=== PATIENT | female | born 1985 | race Caucasian/White ===

== ENCOUNTER 2018-04-24 08:59 | Emergency (ER) | payer MEDICAID ==
[~2018-04-24] VITALS: Ht 160 cm; Wt 126.4 kg
[~2018-04-24 08:59] MED LIST: AMIT75TA2 PO; BACL20TA PO; BUPR100T16 PO; CARB-101 PO; CLIN300C85 PO; COMIN IH; DULO20CA50 PO; LEVA15HF4 IH; LYR25C PO; MUPI15CR TP; OMEP-50 PO
--- NOTE | 2018-04-24 09:36 | NUR ---
PT IS 33 YO FEMALE C/O SOB "I THINK I HAVE PNEUMONIA", PT WAS SEEN AT [facility] THE BEGINNING OF THE MONTH FOR SAME PROBLEM GIVEN ANTIBIOTICS AND STEROIDS, FINISHED MEDS APPROX 2 WEEKS AGO AND WAS COMPLIANT WITH TAKING PRESCRIBED, PT IS TALKING FULL SENTENCES, NO RESP DISTRESS, BUT SAYS SHE GET SOB JUST WALKING ACROSS THE TRAIL[place] SHE [place]ES [place].
[2018-04-24] MEDS ORDERED: ipratropium/albuterol 3ml nebule NEB ONE (10:00)
[2018-04-24 10:05] LABS: BASOPHILS % (AUTO) 0.4 % (0-1); EOSINOPHILS # (AUTO) 0.1 X10'3 (0-0.9); EOSINOPHILS % (AUTO) 1.9 % (0-6); HEMATOCRIT 33.8 % (35.0-45.0); HEMOGLOBIN 10.4 g/dl (12.0-16.0); LYMPHOCYTES # (AUTO) 2.7 X10'3 (1.1-4.8); MEAN CORPUSCULAR HEMOGLOBIN 22.8 PG (27.0-31.0); MEAN CORPUSCULAR HGB CONC 30.9 % (33.0-36.5); MEAN CORPUSCULAR VOLUME 73.8 FL (78-98); MEAN PLATELET VOLUME 7.9 FL (7.4-10.4); MONOCYTES # (AUTO) 0.6 X10'3 (0-0.9); MONOCYTES % (AUTO) 7.7 % (2-12); NEUTROPHILS # (AUTO) 4.2 X10'3 (1.8-7.7); PLATELET COUNT 330 X10'3 (140-440); RED BLOOD COUNT 4.58 X10'6 (4.20-5.60); WHITE BLOOD COUNT 7.6 X10'3 (4.5-11.0)
[2018-04-24] MEDS ORDERED: fluconazole 150mg tablet PO ONE (10:15)
[2018-04-24 10:18] LABS: PARTIAL THROMBOPLASTIN TIME 26 SECONDS (22-32); PROTHROMBIN TIME 9.7 SECONDS (9.0-12.0)
--- NOTE | 2018-04-24 10:25 | NUR ---
PT AMB WITH STEADY GAIT TO RESTROOM, C/O INCREASED SOB WITH AMBULATION, SPEAKING 5-6 WORD SENTENCES, 98% ON ROOM AIR AFTER ACTIVITIY
[2018-04-24 10:29] LABS: ALANINE AMINOTRANSFERASE 23 U/L (12-78); ALBUMIN 3.5 G/DL (3.4-5.0); ALBUMIN/GLOBULIN RATIO 0.9 (1.1-1.5); ALKALINE PHOSPHATASE 63 IU/L (46-116); ANION GAP 8 (8-16); ASPARTATE AMINO TRANSFERASE 13 U/L (10-37); BILIRUBIN,TOTAL 0.2 MG/DL (0.1-1.0); BLOOD UREA NITROGEN 13 MG/DL (7-18); BUN/CREATININE RATIO 13.5 (6.6-38.0); CALCIUM 8.7 MG/DL (8.5-10.1); CHLORIDE 105 MMOL/L (99-107); CREATININE 0.96 MG/DL (0.40-0.90); GLUCOSE 92 MG/DL (70-104); POTASSIUM 4.6 MMOL/L (3.5-5.1); SODIUM 142 MMOL/L (135-145); TOTAL CARBON DIOXIDE 29.3 MMOL/L (24-32); TOTAL PROTEIN 7.3 G/DL (6.4-8.2); eGFR 67 ML/MIN
[2018-04-24] MEDS ORDERED: ALB0.5UD IH (10:33)
[2018-04-24 10:50] LABS: CLARITY,URINE SLIGHTLY CLOUDY (Clear); COLOR,URINE STRAW (Yellow); GLUCOSE, URINE NEGATIVE (Neg); KETONES,URINE NEGATIVE (Neg); LEUKOCYTE ESTERASE ,URINE NEGATIVE (Neg); NITRITES, URINE NEGATIVE (Neg); OCCULT BLOOD,URINE NEGATIVE (Neg); PH,URINE 7.5 (4.8-8.0); PROTEIN,URINE NEGATIVE (Neg); UROBILINOGEN,URINE 0.2 E.U/dL (0.2-1.0)
[2018-04-24 10:53] LABS: UA COLLECTION TYPE CLN CATCH MIDSTREAM
[2018-04-24 10:58] LABS: BACTERIA,URINE FEW /HPF (Neg); RBC,URINE 0-2 /HPF (0-2); SQUAMOUS EPITHELIAL CELL,UR MODERATE /LPF (FEW); WBC,URINE 0-4 /HPF (0-4)
[2018-04-24 11:24] VITALS: BP 113/62
== END 2018-04-24 11:26 | disposition home or self-care (01) ==
LOC: ER 09:00
DX: J45.901 Unspecified asthma with (acute) exacerbation (principal); F12.90 Cannabis use, unspecified, uncomplicated; F15.90 Other stimulant use, unspecified, uncomplicated; G89.29 Other chronic pain; M79.7 Fibromyalgia; Z90.49 Acquired absence of other specified parts of digestive tract; Z98.51 Tubal ligation status; Z98.890 Other specified postprocedural states; Z59.0 Homelessness; Z88.0 Allergy status to penicillin; Z88.1 Allergy status to other antibiotic agents; Z88.8 Allergy status to other drugs, medicaments and biological substances; Z79.899 Other long term (current) drug therapy
CPT/HCPCS: 36415; 71045; 80053; 81001; 84484; 85025; 85610; 85730; 93005; 94640; 99284

== ENCOUNTER 2018-11-05 20:28 | Emergency (ER) | payer MEDICAID ==
[~2018-11-05] VITALS: Ht 160 cm; Wt 115.0 kg
[~2018-11-05 20:28] MED LIST changes: +CLIN-96 PO; -CLIN300C85 PO
[2018-11-05] MEDS ORDERED: levetiracetam inj 1,000 MG in normal saline 100ml IV soln 90 ML IV ONE (20:40)
[2018-11-05] MEDS ORDERED: normal saline 1000ml 1,000 ML IV ONE (20:40)
[2018-11-05] MEDS ORDERED: levetiracetam-NS 1000mg/100ml 100 ML IV ONE (20:44)
[2018-11-05 20:58] LABS: BASOPHILS # (AUTO) 0.1 X10'3 (0-0.2); BASOPHILS % (AUTO) 0.5 % (0-1); EOSINOPHILS # (AUTO) 0.3 X10'3 (0-0.9); EOSINOPHILS % (AUTO) 2.9 % (0-6); HEMATOCRIT 37.3 % (35.0-45.0); HEMOGLOBIN 12.1 g/dl (12.0-16.0); MEAN CORPUSCULAR HEMOGLOBIN 25.2 PG (27.0-31.0); MEAN CORPUSCULAR HGB CONC 32.3 g/dL (33.0-36.5); MEAN CORPUSCULAR VOLUME 78.1 FL (78-98); MEAN PLATELET VOLUME 8.4 FL (7.4-10.4); MONOCYTES # (AUTO) 0.6 X10'3 (0-0.9); MONOCYTES % (AUTO) 5.7 % (2-12); NEUTROPHILS # (AUTO) 6.1 X10'3 (1.8-7.7); NEUTROPHILS % (AUTO) 60.9 % (42-75); PLATELET COUNT 272 X10'3 (140-440); RED BLOOD COUNT 4.78 X10'6 (4.20-5.60); RED CELL DISTRIBUTION WIDTH 19.3 % (11.5-14.5)
[2018-11-05 21:15] LABS: ALANINE AMINOTRANSFERASE 38 U/L (12-78); ALBUMIN 3.7 G/DL (3.4-5.0); ALKALINE PHOSPHATASE 119 IU/L (46-116); ANION GAP 9 (8-16); ASPARTATE AMINO TRANSFERASE 16 U/L (10-37); BILIRUBIN,TOTAL 0.2 MG/DL (0.1-1.0); BLOOD UREA NITROGEN 25 MG/DL (7-18); BUN/CREATININE RATIO 25.8 (6.6-38.0); CHLORIDE 110 MMOL/L (99-107); CREATININE 0.97 MG/DL (0.40-0.90); GLUCOSE 74 MG/DL (70-104); SODIUM 144 MMOL/L (135-145); TOTAL CARBON DIOXIDE 24.6 MMOL/L (24-32); TOTAL PROTEIN 7.5 G/DL (6.4-8.2); eGFR 67 ML/MIN
--- NOTE | 2018-11-05 21:35 | NUR ---
C-COLLAR CLEARED AND REMOVED BY BHAVANA MEEK
[2018-11-05 22:10] LABS: CLARITY,URINE CLEAR (Clear); COLOR,URINE YELLOW (Yellow); GLUCOSE, URINE NEGATIVE (Neg); KETONES,URINE TRACE mg/dl (Neg); LEUKOCYTE ESTERASE ,URINE NEGATIVE (Neg); NITRITES, URINE NEGATIVE (Neg); OCCULT BLOOD,URINE NEGATIVE (Neg); PROTEIN,URINE NEGATIVE (Neg); URINE HCG NEGATIVE (NEG); UROBILINOGEN,URINE 0.2 E.U/dL (0.2-1.0)
[2018-11-05 22:11] LABS: UA COLLECTION TYPE CLN CATCH MIDSTREAM
[2018-11-05 22:30] VITALS: BP 110/70
== END 2018-11-05 22:30 | disposition home or self-care (01) ==
LOC: ER 20:28
DX: R55 Syncope and collapse (principal); J44.9 Chronic obstructive pulmonary disease, unspecified; K21.9 Gastro-esophageal reflux disease without esophagitis; G89.29 Other chronic pain; M79.7 Fibromyalgia; Z86.14 Personal history of Methicillin resistant Staphylococcus aureus infection; F41.9 Anxiety disorder, unspecified; F31.9 Bipolar disorder, unspecified; Z90.49 Acquired absence of other specified parts of digestive tract; Z98.51 Tubal ligation status; Z88.0 Allergy status to penicillin; Z88.2 Allergy status to sulfonamides; Z88.1 Allergy status to other antibiotic agents; Z91.018 Allergy to other foods; Z88.8 Allergy status to other drugs, medicaments and biological substances; Z79.899 Other long term (current) drug therapy
CPT/HCPCS: 36415; 70450; 72125; 80053; 81003; 81025; 85025; 93005; 96374; 99284; J1953; 96361

== ENCOUNTER 2018-12-03 11:01 | Outpatient (CLI) | payer MEDICAID | END 2018-12-03 23:59 | disposition home or self-care (01) | LOC: RAD 11:01 | PROVIDERS: ATTEND Physician Assistant Medical | DX: F44.5 Conversion disorder with seizures or convulsions (principal); R55 Syncope and collapse; J44.9 Chronic obstructive pulmonary disease, unspecified; K21.9 Gastro-esophageal reflux disease without esophagitis; E11.9 Type 2 diabetes mellitus without complications; F17.200 Nicotine dependence, unspecified, uncomplicated; Z79.899 Other long term (current) drug therapy | CPT/HCPCS: 95816 ==

== ENCOUNTER 2019-02-23 22:56 | Emergency (ER) | payer MEDICAID ==
[~2019-02-23] VITALS: Ht 160 cm; Wt 113.0 kg
[~2019-02-23 22:56] MED LIST changes: +CLIN-90 PO; -CLIN-96 PO
[2019-02-23] MEDS ORDERED: ipratropium/albuterol 3ml nebule NEB ONE (23:15)
[2019-02-23 23:43] LABS: BASOPHILS # (AUTO) 0.1 X10'3 (0-0.2); BASOPHILS % (AUTO) 0.7 % (0-1); EOSINOPHILS # (AUTO) 0.3 X10'3 (0-0.9); EOSINOPHILS % (AUTO) 2.3 % (0-6); HEMATOCRIT 41.5 % (35.0-45.0); HEMOGLOBIN 14.1 g/dl (12.0-16.0); LYMPHOCYTES # (AUTO) 3.4 X10'3 (1.1-4.8); LYMPHOCYTES % (AUTO) 31.6 % (21-51); MEAN CORPUSCULAR HEMOGLOBIN 29.5 PG (27.0-31.0); MEAN CORPUSCULAR HGB CONC 34.1 g/dL (33.0-36.5); MEAN CORPUSCULAR VOLUME 86.7 FL (78-98); MEAN PLATELET VOLUME 7.8 FL (7.4-10.4); MONOCYTES # (AUTO) 0.7 X10'3 (0-0.9); MONOCYTES % (AUTO) 6.2 % (2-12); NEUTROPHILS # (AUTO) 6.4 X10'3 (1.8-7.7); NEUTROPHILS % (AUTO) 59.2 % (42-75); PLATELET COUNT 248 X10'3 (140-440); RED BLOOD COUNT 4.78 X10'6 (4.20-5.60); RED CELL DISTRIBUTION WIDTH 15.3 % (11.5-14.5); WHITE BLOOD COUNT 10.9 X10'3 (4.5-11.0)
[2019-02-23] MEDS ORDERED: predniSONE 20 mg tablet PO ONE (23:50)
[2019-02-23] MEDS ORDERED: AZIT500T2 PO (23:52)
[2019-02-23] MEDS ORDERED: PRED20TA PO (23:52)
[2019-02-24 00:03] LABS: ALANINE AMINOTRANSFERASE 24 U/L (12-78); ALBUMIN 3.7 G/DL (3.4-5.0); ALKALINE PHOSPHATASE 87 IU/L (46-116); ANION GAP 9 (8-16); ASPARTATE AMINO TRANSFERASE 14 U/L (10-37); BILIRUBIN,TOTAL 0.2 MG/DL (0.1-1.0); BLOOD UREA NITROGEN 11 MG/DL (7-18); BUN/CREATININE RATIO 13.1 (6.6-38.0); CALCIUM 8.7 MG/DL (8.5-10.1); CHLORIDE 109 MMOL/L (99-107); CREATININE 0.84 MG/DL (0.40-0.90); GLUCOSE 96 MG/DL (70-104); POTASSIUM 3.4 MMOL/L (3.5-5.1); SODIUM 143 MMOL/L (135-145); TOTAL CARBON DIOXIDE 24.9 MMOL/L (24-32); TOTAL PROTEIN 7.4 G/DL (6.4-8.2); eGFR 79 ML/MIN
== END 2019-02-24 01:14 | disposition home or self-care (01) ==
LOC: ER 22:56
DX: J20.9 Acute bronchitis, unspecified (principal); K21.9 Gastro-esophageal reflux disease without esophagitis; G89.29 Other chronic pain; M79.7 Fibromyalgia; G62.9 Polyneuropathy, unspecified; F17.200 Nicotine dependence, unspecified, uncomplicated; Z90.49 Acquired absence of other specified parts of digestive tract; Z98.890 Other specified postprocedural states; Z98.51 Tubal ligation status; Z87.01 Personal history of pneumonia (recurrent); Z88.0 Allergy status to penicillin; Z88.1 Allergy status to other antibiotic agents; Z88.8 Allergy status to other drugs, medicaments and biological substances
CPT/HCPCS: 36415; 71045; 80053; 85025; 93005; 94640; 94760; 99284; J7512

== ENCOUNTER 2019-03-09 21:42 | Emergency (ER) | payer MEDICAID, OTHER ==
[~2019-03-09] VITALS: Ht 160 cm; Wt 115.0 kg
[~2019-03-09 21:42] MED LIST changes: +AZIT500T2 PO
[2019-03-09] MEDS ORDERED: HYDROcodone/acetaminophen 10/325mg tab PO ONE (23:30)
[2019-03-09] MEDS ORDERED: HYDR-4383 PO (23:46)
[2019-03-10 00:29] VITALS: BP 129/82
== END 2019-03-10 00:32 | disposition home or self-care (01) ==
LOC: ER 21:43
DX: S92.352A Displaced fracture of fifth metatarsal bone, left foot, initial encounter for closed fracture (principal); J44.9 Chronic obstructive pulmonary disease, unspecified; K21.9 Gastro-esophageal reflux disease without esophagitis; F31.9 Bipolar disorder, unspecified; F41.9 Anxiety disorder, unspecified; M79.7 Fibromyalgia; G62.9 Polyneuropathy, unspecified; G89.29 Other chronic pain; Z86.14 Personal history of Methicillin resistant Staphylococcus aureus infection; Z90.49 Acquired absence of other specified parts of digestive tract; Z98.51 Tubal ligation status; Z98.890 Other specified postprocedural states; Z88.0 Allergy status to penicillin; Z88.2 Allergy status to sulfonamides; Z88.1 Allergy status to other antibiotic agents; Z91.018 Allergy to other foods; Z79.899 Other long term (current) drug therapy; W22.01XA Walked into wall, initial encounter; Y93.89 Activity, other specified; Y92.89 Other specified places as the place of occurrence of the external cause; Y99.8 Other external cause status
CPT/HCPCS: 29515; 73630; 99283

== ENCOUNTER 2019-03-25 15:16 | Outpatient (CLI) | payer OTHER ==
[~2019-03-25 15:16] MED LIST changes: -AZIT500T2 PO; +HYDR-4383 PO
== END 2019-03-25 16:37 | disposition home or self-care (01) ==
LOC: ORTHO 15:16
PROVIDERS: ATTEND Nurse Practitioner
DX: S92.352K Displaced fracture of fifth metatarsal bone, left foot, subsequent encounter for fracture with nonunion (principal); X58.XXXD Exposure to other specified factors, subsequent encounter
CPT/HCPCS: 73630; G0463

== ENCOUNTER 2019-04-12 20:35 | Emergency (ER) | payer MEDICAID, OTHER ==
[~2019-04-12] VITALS: Ht 160 cm; Wt 115.0 kg
[2019-04-12 20:38] VITALS: BP 111/82
--- NOTE | 2019-04-12 21:49 | NUR ---
PT LWOB FROM LOBBY. PT SAYS SHE'S GOING TO COME BACK WHEN WERE NOT BUSY.
[2019-04-13] MEDS ORDERED: PRED20TA PO (12:19)
[2019-04-13] MEDS ORDERED: LEVO750T21 PO (12:21)
== END 2019-04-12 22:37 | disposition left against medical advice (07) ==
LOC: ER 20:36
DX: R05 Cough (principal); R09.81 Nasal congestion; R06.2 Wheezing; Z53.21 Procedure and treatment not carried out due to patient leaving prior to being seen by health care provider

== ENCOUNTER 2019-04-13 11:19 | Emergency (ER) | payer MEDICAID, OTHER ==
[~2019-04-13] VITALS: Ht 160 cm; Wt 253.0 kg
[2019-04-13 11:24] VITALS: BP 140/69
[2019-04-13] MEDS ORDERED: predniSONE 20 mg tablet PO ONE (11:55)
[2019-04-13] MEDS ORDERED: ipratropium/albuterol 3ml nebule NEB ONE (11:55)
[2019-04-13] MEDS ORDERED: PRED20TA PO (12:19)
[2019-04-13] MEDS ORDERED: LEVO750T21 PO (12:21)
== END 2019-04-13 12:34 | disposition home or self-care (01) ==
LOC: ER 11:20
DX: J40 Bronchitis, not specified as acute or chronic (principal); J44.9 Chronic obstructive pulmonary disease, unspecified; K21.9 Gastro-esophageal reflux disease without esophagitis; M79.7 Fibromyalgia; F41.9 Anxiety disorder, unspecified; F31.9 Bipolar disorder, unspecified; G89.29 Other chronic pain; G62.9 Polyneuropathy, unspecified; Z86.69 Personal history of other diseases of the nervous system and sense organs; Z86.14 Personal history of Methicillin resistant Staphylococcus aureus infection; Z90.49 Acquired absence of other specified parts of digestive tract; Z98.51 Tubal ligation status; Z98.890 Other specified postprocedural states; Z88.0 Allergy status to penicillin; Z91.018 Allergy to other foods; Z88.2 Allergy status to sulfonamides; Z88.8 Allergy status to other drugs, medicaments and biological substances; Z79.899 Other long term (current) drug therapy
CPT/HCPCS: 71045; 94640; 99283; J7512

== ENCOUNTER 2019-05-22 20:55 | Emergency (ER) | payer MEDICAID, OTHER ==
[~2019-05-22] VITALS: Ht 160 cm; Wt 109.1 kg
[2019-05-22] MEDS ORDERED: HYDROcodone/acetaminophen 5mg/325mg tablet PO STA (21:48)
[2019-05-22 22:23] VITALS: BP 134/82
== END 2019-05-22 22:24 | disposition home or self-care (01) ==
LOC: ER 20:55
DX: S80.01XA Contusion of right knee, initial encounter (principal); G62.9 Polyneuropathy, unspecified; J44.9 Chronic obstructive pulmonary disease, unspecified; K21.9 Gastro-esophageal reflux disease without esophagitis; G89.29 Other chronic pain; M79.7 Fibromyalgia; F41.9 Anxiety disorder, unspecified; Z86.14 Personal history of Methicillin resistant Staphylococcus aureus infection; Z98.51 Tubal ligation status; Z98.890 Other specified postprocedural states; Z90.49 Acquired absence of other specified parts of digestive tract; Z88.0 Allergy status to penicillin; Z88.2 Allergy status to sulfonamides; Z88.8 Allergy status to other drugs, medicaments and biological substances; Z79.899 Other long term (current) drug therapy; W18.39XA Other fall on same level, initial encounter; Y93.89 Activity, other specified; Y92.89 Other specified places as the place of occurrence of the external cause; Y99.8 Other external cause status
CPT/HCPCS: 73564; 99284

== ENCOUNTER 2019-06-12 13:30 | Inpatient (IN) | payer MEDICAID, OTHER ==
[~2019-06-12] VITALS: Ht 160 cm; Wt 108.2 kg
[2019-06-12] MEDS ORDERED: methylPREDNISolone sod succ 125mg/2ml vial IV ONE (13:45)
[2019-06-12] MEDS ORDERED: oseltamivir phos 75mg capsule PO ONE (13:45)
[2019-06-12] MEDS ORDERED: normal saline 1000ML IV soln IVB ONE (13:45)
[2019-06-12] MEDS ORDERED: ipratropium/albuterol 3ml nebule NEB ONE (13:45)
[2019-06-12 14:14] LABS: BASOPHILS % (AUTO) 0.3 % (0-1); EOSINOPHILS % (AUTO) 0.1 % (0-6); HEMATOCRIT 42.3 % (35.0-45.0); HEMOGLOBIN 14.5 g/dl (12.0-16.0); LYMPHOCYTES % (AUTO) 10.9 % (21-51); MEAN CORPUSCULAR HEMOGLOBIN 30.7 PG (27.0-31.0); MEAN CORPUSCULAR HGB CONC 34.2 g/dL (33.0-36.5); MEAN CORPUSCULAR VOLUME 89.8 FL (78-98); MEAN PLATELET VOLUME 8.6 FL (7.4-10.4); MONOCYTES # (AUTO) 0.7 X10'3 (0-0.9); NEUTROPHILS # (AUTO) 7.8 X10'3 (1.8-7.7); NEUTROPHILS % (AUTO) 81.7 % (42-75); PLATELET COUNT 162 X10'3 (140-440); RED BLOOD COUNT 4.72 X10'6 (4.20-5.60); RED CELL DISTRIBUTION WIDTH 14.2 % (11.5-14.5); WHITE BLOOD COUNT 9.6 X10'3 (4.5-11.0)
[2019-06-12 14:23] LABS: PARTIAL THROMBOPLASTIN TIME 29 SECONDS (22-32)
[2019-06-12 14:25] LABS: ALANINE AMINOTRANSFERASE 22 U/L (12-78); ALBUMIN 3.6 G/DL (3.4-5.0); ALKALINE PHOSPHATASE 74 IU/L (46-116); ANION GAP 9 (8-16); ASPARTATE AMINO TRANSFERASE 18 U/L (10-37); BILIRUBIN,TOTAL 0.3 MG/DL (0.1-1.0); BLOOD UREA NITROGEN 8 MG/DL (7-18); CALCIUM 8.8 MG/DL (8.5-10.1); CHLORIDE 108 MMOL/L (99-107); CREATININE 0.89 MG/DL (0.40-0.90); GLUCOSE 118 MG/DL (70-104); POTASSIUM 3.3 MMOL/L (3.5-5.1); SODIUM 141 MMOL/L (135-145); TOTAL CARBON DIOXIDE 23.9 MMOL/L (24-32); TOTAL PROTEIN 7.2 G/DL (6.4-8.2); eGFR 73 ML/MIN
[2019-06-12] MEDS ORDERED: potassium Cl 20 mEq SR tablet PO ONE (14:55)
[2019-06-12] MEDS ORDERED: acetaminophen 325mg tablet PO ONE (16:35)
[2019-06-12] MEDS ORDERED: azithromycin/NS 500mg/250ml 250 ML IV ONE (17:05)
[2019-06-12] MEDS ORDERED: acetaminophen 325mg tablet PO PRN ×2 (17:45)
[2019-06-12] MEDS ORDERED: magnesium hydroxide 30ml (MOM) UD suspension PO PRN (17:45)
[2019-06-12] MEDS ORDERED: morphine 2 MG/ML inj. syringe IV PRN ×2 (17:45)
[2019-06-12] MEDS ORDERED: ondansetron/PF 4mg/2ml inj IV PRN (17:45)
[2019-06-12] MEDS ORDERED: mag hydrox/Alum hydrox/simeth 30ml oral suspension PO PRN (17:45)
[2019-06-12] MEDS ORDERED: ALBU17AE26 INH (17:58)
[2019-06-12] MEDS ORDERED: PREG150C46 PO (17:58)
[2019-06-12] MEDS ORDERED: HYDR-3686 PO (17:58)
[2019-06-12] MEDS ORDERED: LURA40TA3 PO (17:58)
[2019-06-12] MEDS ORDERED: MELO-100 PO (17:58)
[2019-06-12] MEDS ORDERED: LORA10TA7 PO (17:58)
[2019-06-12] MEDS ORDERED: OXYB5TAB16 PO (17:58)
[2019-06-12] MEDS ORDERED: TOPI50TA24 PO (17:58)
[2019-06-12] MEDS ORDERED: RISP1TAB3 PO ×2 (17:58)
[2019-06-12] MEDS ORDERED: TIOT4MIS3 INH (17:58)
[2019-06-12] MEDS ORDERED: FERR-106 PO (17:58)
[2019-06-12] MEDS ORDERED: METH-360 PO (18:01)
[2019-06-12] MEDS ORDERED: METF-436 PO (18:01)
--- NOTE | 2019-06-12 19:39 | NUR ---
ROUNDED ON PT, PT GIVEN WATER UPON REQUEST
--- NOTE | 2019-06-12 20:18 | NUR ---
Report given to me by Britni MENG in the ER and I will give report to Gabrielle MENG regarding patient.
--- NOTE | 2019-06-12 20:30 | NUR ---
Patient came up to floor via gurney. Patient able to walk into room to bed. Bed locked & low, call light within reach.
[2019-06-12 20:40] VITALS: BP 126/84
[2019-06-12] MEDS ORDERED: potassium CL 10mEq/100ml bag 100 ML IV PRN (21:15)
[2019-06-12] MEDS ORDERED: potassium Cl 20 mEq SR tablet PO PRN (21:15)
[2019-06-12] MEDS ORDERED: MESSAGE TO PHARMACY PO ONE (21:15)
[2019-06-12] MEDS ORDERED: insulin Lispro (HumaLOG) vial - multi-dose SQ SCH (21:15)
[2019-06-12] MEDS ORDERED: dextrose ORAL solution 15 GM/59 ML bottle PO PRN ×2 (21:15)
[2019-06-12] MEDS ORDERED: dextrose 50%-water 50ml dispensing syringe IV PRN ×2 (21:15)
[2019-06-12] MEDS: K and/or MAG REPLACEMENT MC SCH (21:15)
[2019-06-12] MEDS ORDERED: glucagon, human recombinant 1mg kit SUBCUT PRN (21:15)
[2019-06-12] MEDS ORDERED: lurasidone 20mg tablet PO ONE (21:40)
[2019-06-12] MEDS ORDERED: risperiDONE 2mg tablet PO ONE (21:40)
[2019-06-12] MEDS ORDERED: benzonatate 100mg capsule PO PRN (21:40)
[2019-06-12] MEDS ORDERED: topiramate 25mg tablet PO ONE (21:40)
[2019-06-12] MEDS ORDERED: lurasidone 20mg tablet PO SCH (21:40)
[2019-06-12] MEDS ORDERED: topiramate 25mg tablet PO SCH (21:40)
[2019-06-12] MEDS: potassium Cl 20 mEq SR tablet PO PRN (21:52)
[2019-06-12 22:16] LABS: HEMOGLOBIN A1C 5.6 % (4.5-6.2)
[2019-06-13] MEDS: albuterol 2.5 MG/3 ML nebule NEB PRN ×3 (00:05→10:37)
[2019-06-13] MEDS: methylPREDNISolone sod succ 125mg/2ml vial IV SCH ×2 (00:26→07:41)
[2019-06-13] MEDS: potassium Cl 20 mEq SR tablet PO PRN (01:48)
[2019-06-13] MEDS: HYDROcodone/acetaminophen 5mg/325mg tablet PO PRN ×2 (04:55→09:54)
[2019-06-13 06:00] VITALS: BP 132/70
--- NOTE | 2019-06-13 06:25 | NUR ---
Problems reprioritized. Patient report given, questions answered & plan of care reviewed with Kassie MENG.
--- NOTE | 2019-06-13 06:31 | NUR ---
Patient in room ORTHO 4018. I have received report from Gabrielle MENG and had the opportunity to ask questions and assume patient care.
[2019-06-13 06:32] LABS: BASOPHILS % (AUTO) 0.1 % (0-1); EOSINOPHILS % (AUTO) 0 % (0-6); HEMATOCRIT 43.1 % (35.0-45.0); LYMPHOCYTES # (AUTO) 0.8 X10'3 (1.1-4.8); LYMPHOCYTES % (AUTO) 6.6 % (21-51); MEAN CORPUSCULAR HEMOGLOBIN 31.2 PG (27.0-31.0); MEAN CORPUSCULAR HGB CONC 34.9 g/dL (33.0-36.5); MEAN CORPUSCULAR VOLUME 89.3 FL (78-98); MEAN PLATELET VOLUME 8.6 FL (7.4-10.4); MONOCYTES # (AUTO) 0.2 X10'3 (0-0.9); MONOCYTES % (AUTO) 1.7 % (2-12); NEUTROPHILS # (AUTO) 11.5 X10'3 (1.8-7.7); NEUTROPHILS % (AUTO) 91.6 % (42-75); PLATELET COUNT 163 X10'3 (140-440); RED BLOOD COUNT 4.82 X10'6 (4.20-5.60); WHITE BLOOD COUNT 12.6 X10'3 (4.5-11.0)
[2019-06-13 06:44] LABS: ALBUMIN 3.5 G/DL (3.4-5.0); ANION GAP 12 (8-16); BLOOD UREA NITROGEN 9 MG/DL (7-18); CALCIUM 9.4 MG/DL (8.5-10.1); CHLORIDE 110 MMOL/L (99-107); CREATININE 0.82 MG/DL (0.40-0.90); GLUCOSE 160 MG/DL (70-104); POTASSIUM 4.1 MMOL/L (3.5-5.1); SODIUM 144 MMOL/L (135-145); TOTAL CARBON DIOXIDE 22.1 MMOL/L (24-32); eGFR 80 ML/MIN
[2019-06-13] MEDS: K and/or MAG REPLACEMENT MC SCH (07:44)
[2019-06-13] MEDS ORDERED: levoFLOXACIN-Levaquin 750MG/D5 150 ML IV SCH (08:00)
[2019-06-13] MEDS ORDERED: enoxaparin 40mg/0.4ml syringe SUBCUT SCH (08:00)
[2019-06-13] MEDS ORDERED: oseltamivir 30mg capsule PO SCH (09:15)
[2019-06-13] MEDS ORDERED: OSEL30CA PO (09:37)
[2019-06-13 10:00] VITALS: BP 125/72
[2019-06-13] MEDS ORDERED: LEVO750T21 PO (10:22)
--- NOTE | 2019-06-13 11:49 | NUR ---
Patient stable for discharge home today. All belongings sent with patient and home medications stored in pharmacy picked up. [employer] $340 picked up at [employer] that was stored in safe.
[2019-06-13] MEDS ORDERED: insulin glargine (Lantus) pen - multi-dose SQ SCH (21:00)
== END 2019-06-13 11:29 | disposition home or self-care (01) | DRG 139 ==
LOC: ER 13:31 → ED HOLD 17:41 → ORTHO 4S 20:31
PROVIDERS: ADMIT Internal Medicine; ATTEND Internal Medicine
DX: J10.00 Influenza due to other identified influenza virus with unspecified type of pneumonia (principal); E11.42 Type 2 diabetes mellitus with diabetic polyneuropathy; J44.0 Chronic obstructive pulmonary disease with (acute) lower respiratory infection; E66.01 Morbid (severe) obesity due to excess calories; J45.901 Unspecified asthma with (acute) exacerbation; J44.1 Chronic obstructive pulmonary disease with (acute) exacerbation; F17.210 Nicotine dependence, cigarettes, uncomplicated; F32.9 Major depressive disorder, single episode, unspecified; F41.9 Anxiety disorder, unspecified; G89.29 Other chronic pain; K21.9 Gastro-esophageal reflux disease without esophagitis; M54.9 Dorsalgia, unspecified; I25.10 Atherosclerotic heart disease of native coronary artery without angina pectoris; M79.7 Fibromyalgia; I25.2 Old myocardial infarction; Z68.41 Body mass index [BMI] 40.0-44.9, adult; Z79.899 Other long term (current) drug therapy; Z83.3 Family history of diabetes mellitus; Z88.0 Allergy status to penicillin; Z88.2 Allergy status to sulfonamides; Z90.49 Acquired absence of other specified parts of digestive tract; Z98.51 Tubal ligation status; Z82.49 Family history of ischemic heart disease and other diseases of the circulatory system; Z81.8 Family history of other mental and behavioral disorders
CPT/HCPCS: 36415; 71045; 80048; 80053; 82948; 83036; 83880; 85025; 85610; 85730; 87081; 87502; 87503; 93005; 94640; 94760; 96374; 96375; 99285; G0378; J0456; J1650; J1815; J1956; J2930; J7030

== ENCOUNTER → 2022-01-20 | Emergency (ER) | payer BC, MEDICAID ==
[~2022-01-20] VITALS: Ht 160 cm; Wt 110.0 kg
[~2022-01-20] MED LIST changes: +ALBU17AE26 INH; -AMIT75TA2 PO; +BACI28.42 TOP; -BACL20TA PO; -BUPR100T16 PO; -CARB-101 PO; -CLIN-90 PO; -DULO20CA50 PO; +FERR-106 PO; +HYDR-3686 PO; -HYDR-4383 PO; -LEVA15HF4 IH; +LEVO750T21 PO; +LORA10TA7 PO; +LURA40TA2 PO; -LYR25C PO; +MELO-100 PO; +METF-436 PO; +METH-360 PO; -MUPI15CR TP; -OMEP-50 PO; +OMEP20CA16 PO; +OSEL30CA PO; +OXYB5TAB16 PO; +PREG150C46 PO; +RISP1TAB98 PO; +TETanus/Pertussis (Acell)/Diphther VAC/PF (Tdap-Adult) 0.5ml syringe IMVAC ONE; +TIOT4MIS3 INH; +TOPI50TA24 PO; +bacitracin 15gm ointment TP ONE
[2022-01-20 13:56] VITALS: BP 136/85
== END | disposition home or self-care (01) ==
LOC: ER 13:31
DX: T23.202A Burn of second degree of left hand, unspecified site, initial encounter (principal); T21.21XA Burn of second degree of chest wall, initial encounter; I25.10 Atherosclerotic heart disease of native coronary artery without angina pectoris; I25.2 Old myocardial infarction; J45.909 Unspecified asthma, uncomplicated; K21.9 Gastro-esophageal reflux disease without esophagitis; G89.29 Other chronic pain; F41.9 Anxiety disorder, unspecified; F31.9 Bipolar disorder, unspecified; Z86.69 Personal history of other diseases of the nervous system and sense organs; Z87.01 Personal history of pneumonia (recurrent); Z86.14 Personal history of Methicillin resistant Staphylococcus aureus infection; Z90.49 Acquired absence of other specified parts of digestive tract; Z98.51 Tubal ligation status; Z98.890 Other specified postprocedural states; Z88.0 Allergy status to penicillin; Z88.1 Allergy status to other antibiotic agents; Z88.8 Allergy status to other drugs, medicaments and biological substances; Z79.2 Long term (current) use of antibiotics; Z79.899 Other long term (current) drug therapy; X08.8XXA Exposure to other specified smoke, fire and flames, initial encounter; Y93.89 Activity, other specified; Y92.89 Other specified places as the place of occurrence of the external cause; Y99.8 Other external cause status
CPT/HCPCS: 16020; 90471; 90715; 99283; A6258

== ENCOUNTER 2022-04-26 11:51 | Emergency (ER) | payer BC, MEDICAID ==
[~2022-04-26] VITALS: Ht 160 cm; Wt 123.2 kg
[~2022-04-26 11:51] MED LIST changes: -TETanus/Pertussis (Acell)/Diphther VAC/PF (Tdap-Adult) 0.5ml syringe IMVAC ONE; -bacitracin 15gm ointment TP ONE
[2022-04-26 13:11] LABS: BASOPHILS % (AUTO) 0.6 % (0-1); EOSINOPHILS # (AUTO) 0.1 X10'3 (0-0.9); EOSINOPHILS % (AUTO) 1.2 % (0-6); HEMATOCRIT 43.8 % (35.0-45.0); HEMOGLOBIN 14.5 g/dl (12.0-16.0); LYMPHOCYTES # (AUTO) 2.4 X10'3 (1.1-4.8); LYMPHOCYTES % (AUTO) 27.3 % (21-51); MEAN CORPUSCULAR HEMOGLOBIN 31.4 PG (27.0-31.0); MEAN CORPUSCULAR HGB CONC 33.1 g/dL (33.0-36.5); MEAN CORPUSCULAR VOLUME 94.7 FL (78-98); MEAN PLATELET VOLUME 7.7 FL (7.4-10.4); MONOCYTES # (AUTO) 0.5 X10'3 (0-0.9); MONOCYTES % (AUTO) 5.2 % (2-12); NEUTROPHILS # (AUTO) 5.7 X10'3 (1.8-7.7); NEUTROPHILS % (AUTO) 65.7 % (42-75); PLATELET COUNT 230 X10'3 (140-440); RED BLOOD COUNT 4.62 X10'6 (4.20-5.60); RED CELL DISTRIBUTION WIDTH 13.8 % (11.5-14.5); WHITE BLOOD COUNT 8.7 X10'3 (4.5-11.0)
[2022-04-26 13:33] LABS: ALANINE AMINOTRANSFERASE 40 U/L (12-78); ALBUMIN 3.7 G/DL (3.4-5.0); ALBUMIN/GLOBULIN RATIO 1.2 (1.1-1.5); ALKALINE PHOSPHATASE 57 IU/L (46-116); ANION GAP 4 (8-16); ASPARTATE AMINO TRANSFERASE 21 U/L (10-37); BILIRUBIN,TOTAL 0.3 MG/DL (0.1-1.0); BLOOD UREA NITROGEN 14 MG/DL (7-18); BUN/CREATININE RATIO 16.5 (6.6-38.0); CALCIUM 8.4 MG/DL (8.5-10.1); CHLORIDE 107 MMOL/L (99-107); CREATININE 0.85 MG/DL (0.40-0.90); GLUCOSE 111 MG/DL (70-104); POTASSIUM 3.7 MMOL/L (3.5-5.1); SODIUM 139 MMOL/L (135-145); TOTAL CARBON DIOXIDE 27.9 MMOL/L (24-32); TOTAL PROTEIN 6.7 G/DL (6.4-8.2); eGFR 76 ML/MIN
[2022-04-26 14:06] LABS: CLARITY,URINE CLEAR (Clear); COLOR,URINE YELLOW (Yellow); GLUCOSE, URINE NEGATIVE (Neg); KETONES,URINE NEGATIVE (Neg); LEUKOCYTE ESTERASE ,URINE NEGATIVE (Neg); NITRITES, URINE NEGATIVE (Neg); OCCULT BLOOD,URINE NEGATIVE (Neg); PH,URINE 8.5 (4.8-8.0); PROTEIN,URINE NEGATIVE (Neg); UROBILINOGEN,URINE 0.2 E.U/dL (0.2-1.0)
[2022-04-26 14:25] LABS: UA COLLECTION TYPE CLN CATCH MIDSTREAM
[2022-04-26] MEDS ORDERED: albuterol 2.5 MG/3 ML nebule NEB ONE (14:35)
[2022-04-26] MEDS ORDERED: PRED20TA PO (15:29)
[2022-04-26] MEDS ORDERED: DOXY-411 PO (15:29)
[2022-04-26 15:38] VITALS: BP 144/98
== END 2022-04-26 15:42 | disposition home or self-care (01) ==
LOC: ER 11:51
DX: J44.1 Chronic obstructive pulmonary disease with (acute) exacerbation (principal); R10.30 Lower abdominal pain, unspecified
CPT/HCPCS: 36415; 71045; 80053; 81003; 83880; 84484; 85025; 93005; 94640; 94760; 99285

== ENCOUNTER 2022-06-29 12:01 | Emergency (ER) | payer BC, MEDICAID ==
[~2022-06-29] VITALS: Ht 154.9 cm; Wt 113.6 kg
[~2022-06-29 12:01] MED LIST changes: +TOPI-253 PO; -TOPI50TA24 PO
[2022-06-29 12:22] LABS: BASOPHILS # (AUTO) 0.2 X10'3 (0-0.2); BASOPHILS % (AUTO) 1.5 % (0-1); EOSINOPHILS # (AUTO) 0.1 X10'3 (0-0.9); EOSINOPHILS % (AUTO) 0.4 % (0-6); HEMATOCRIT 46.1 % (35.0-45.0); HEMOGLOBIN 15.6 g/dl (12.0-16.0); LYMPHOCYTES # (AUTO) 1.6 X10'3 (1.1-4.8); LYMPHOCYTES % (AUTO) 12.3 % (21-51); MEAN CORPUSCULAR HGB CONC 33.8 g/dL (33.0-36.5); MEAN CORPUSCULAR VOLUME 94.8 FL (78-98); MEAN PLATELET VOLUME 7.9 FL (7.4-10.4); MONOCYTES # (AUTO) 0.3 X10'3 (0-0.9); MONOCYTES % (AUTO) 2.5 % (2-12); NEUTROPHILS % (AUTO) 83.3 % (42-75); PLATELET COUNT 247 X10'3 (140-440); RED BLOOD COUNT 4.86 X10'6 (4.20-5.60); RED CELL DISTRIBUTION WIDTH 13.8 % (11.5-14.5); WHITE BLOOD COUNT 13.2 X10'3 (4.5-11.0)
[2022-06-29 12:40] LABS: ALANINE AMINOTRANSFERASE 32 U/L (12-78); ALBUMIN/GLOBULIN RATIO 1.1 (1.1-1.5); ALKALINE PHOSPHATASE 69 IU/L (46-116); ANION GAP 11 (8-16); BILIRUBIN,TOTAL 0.4 MG/DL (0.1-1.0); BLOOD UREA NITROGEN 14 MG/DL (7-18); BUN/CREATININE RATIO 18.7 (6.6-38.0); CALCIUM 9.2 MG/DL (8.5-10.1); CHLORIDE 106 MMOL/L (99-107); CREATININE 0.75 MG/DL (0.40-0.90); GLUCOSE 107 MG/DL (70-104); SODIUM 139 MMOL/L (135-145); TOTAL CARBON DIOXIDE 22.2 MMOL/L (24-32); TOTAL PROTEIN 7.7 G/DL (6.4-8.2); eGFR 87 ML/MIN
[2022-06-29 12:47] LABS: MAGNESIUM 2.3 MG/DL (1.5-2.4)
[2022-06-29 13:00] LABS: ASPARTATE AMINO TRANSFERASE 27 U/L (10-37); POTASSIUM 4.5 MMOL/L (3.5-5.1)
[2022-06-29 14:48] VITALS: BP 124/82
--- NOTE | 2022-06-29 14:48 | NUR ---
Dr. Remy canceled third trop.
[2022-06-29] MEDS ORDERED: predniSONE 20 mg tablet PO ONE (15:15)
[2022-06-29] MEDS ORDERED: LIDOcaine Viscous 15ml cup MM ONE (15:15)
[2022-06-29] MEDS ORDERED: mag hydrox/Alum hydrox/simeth 30ml oral suspension PO ONE (15:15)
--- NOTE | 2022-06-29 15:32 | NUR ---
Patient evaluated and treated by provider in RAP area. Patient awaiting ED room, placed back in lobby.
[2022-06-29] MEDS ORDERED: PRED20TA PO (16:03)
[2022-06-29] MEDS ORDERED: AZIT-83 PO (16:23)
--- NOTE | 2022-06-29 16:26 | NUR ---
Patient evluated, treated and discharged by provider prior to discharge.
[2022-06-29 16:29] LABS: D-DIMER < 0.19 MG/L FEU (0-0.50)
== END 2022-06-29 16:27 | disposition home or self-care (01) ==
LOC: ER 12:01
DX: R07.9 Chest pain, unspecified (principal); I11.9 Hypertensive heart disease without heart failure; J44.9 Chronic obstructive pulmonary disease, unspecified; K21.9 Gastro-esophageal reflux disease without esophagitis; G89.29 Other chronic pain; M54.9 Dorsalgia, unspecified; F31.9 Bipolar disorder, unspecified; Z88.0 Allergy status to penicillin; Z88.5 Allergy status to narcotic agent; Z88.2 Allergy status to sulfonamides; Z88.1 Allergy status to other antibiotic agents
CPT/HCPCS: 36415; 71045; 80053; 83735; 83880; 84484; 85025; 85379; 93005; 99285; J7512

== ENCOUNTER 2022-07-19 15:57 | Emergency (ER) | payer BC, MEDICAID ==
[~2022-07-19] VITALS: Ht 154.9 cm; Wt 118.6 kg
[~2022-07-19 15:57] MED LIST changes: +AZIT-83 PO; +PRED20TA PO
[2022-07-19 17:02] VITALS: BP 110/72
[2022-07-19] MEDS ORDERED: HYDROcodone/acetaminophen 10/325mg tab PO ONE (18:25)
== END 2022-07-19 18:56 | disposition home or self-care (01) ==
LOC: ER 15:57
DX: S67.42XA Crushing injury of left wrist and hand, initial encounter (principal); S67.197A Crushing injury of left little finger, initial encounter; I25.10 Atherosclerotic heart disease of native coronary artery without angina pectoris; I25.2 Old myocardial infarction; J44.9 Chronic obstructive pulmonary disease, unspecified; K21.9 Gastro-esophageal reflux disease without esophagitis; G89.29 Other chronic pain; F41.9 Anxiety disorder, unspecified; F31.9 Bipolar disorder, unspecified; M79.7 Fibromyalgia; Z86.14 Personal history of Methicillin resistant Staphylococcus aureus infection; Z90.49 Acquired absence of other specified parts of digestive tract; Z98.51 Tubal ligation status; Z98.890 Other specified postprocedural states; Z88.0 Allergy status to penicillin; Z88.2 Allergy status to sulfonamides; Z91.018 Allergy to other foods; Z79.899 Other long term (current) drug therapy; Z79.84 Long term (current) use of oral hypoglycemic drugs; Z88.1 Allergy status to other antibiotic agents; X58.XXXA Exposure to other specified factors, initial encounter; Y93.89 Activity, other specified; Y92.89 Other specified places as the place of occurrence of the external cause; Y99.8 Other external cause status
CPT/HCPCS: 29125; 73130; 99283; A6449

== ENCOUNTER 2022-08-15 08:19 | Outpatient (CLI) | payer BC, MEDICAID ==
[~2022-08-15 08:19] MED LIST changes: -AZIT-83 PO; -PRED20TA PO
== END 2022-08-15 23:59 | disposition home or self-care (01) ==
LOC: RAD 08:19
PROVIDERS: ATTEND Physician Assistant Medical
DX: R55 Syncope and collapse (principal); G40.909 Epilepsy, unspecified, not intractable, without status epilepticus
CPT/HCPCS: 95816